=== PATIENT | female | born 1995 | race Caucasian/White ===

== ENCOUNTER 2019-02-04 22:00 | Emergency (ER) | payer BC ==
[2019-02-04] MEDS: IBUPROFEN 800 MG TAB PO (23:58)
== END 2019-02-05 00:30 | disposition home or self-care (01) ==
LOC: FTE 02-05 00:30
DX: S81.051A Open bite, right knee, initial encounter (principal); W54.0XXA Bitten by dog, initial encounter; Y93.9 Activity, unspecified
CPT/HCPCS: 73562; 81025; 99283-25

== ENCOUNTER 2019-02-05 21:33 | Emergency (ER) | payer BC | END 2019-02-05 22:56 | disposition home or self-care (01) | LOC: FTE 21:33 | DX: R21 Rash and other nonspecific skin eruption (principal) | CPT/HCPCS: 99282 ==